=== PATIENT | female | born 1990 | race Caucasian/White ===

== ENCOUNTER 2017-05-21 06:36 | Inpatient (IN) | payer MEDICAID, OTHER ==
[~2017-05-21] VITALS: Ht 160 cm; Wt 49.2 kg
[2017-05-21 10:22] LABS: Basophils # (auto) 0 uL; Basophils % (auto) 0.3 % (0.0-2.0); Eosinophils # (auto) 0 uL; Eosinophils % (auto) 0.6 % (0.0-7.0); Hematocrit 39.9 % (36.0-46.0); Hemoglobin 13.4 g/dL (12.2-16.2); Lymphocytes # (auto) 0.9 uL; Lymphocytes % (auto) 17.9 % (10.0-50.0); Mean Corpuscular Hemoglobin 31.1 pg (28.0-32.0); Mean Corpuscular Hgb Conc. 33.5 g/dL (32.0-36.0); Mean Corpuscular Volume 92.8 fL (80.0-100.0); Monocytes # (auto) 0.5 uL; Monocytes % (auto) 9.3 % (0.0-12.0); Neutrophils # (auto) 3.7 uL; Neutrophils % (auto) 71.9 % (37.0-80.0); Nucleated Red Blood Cells % 0.1 %; Platelet Count (auto) 192 10^3/uL (140-450); Red Cell Distribution Width 13.2 % (11.8-14.3); White Blood Cell 5.1 10^3/uL (4.4-10.8)
[2017-05-21 10:33] LABS: Urine Bacteria FEW /hpf (None Seen); Urine Blood 1+ /uL (Negative); Urine Specific Gravity 1.004 (1.001-1.035); Urine WBC <1 /hpf (0 - 5)
[2017-05-21 10:33] LABS: Albumin 4.2 g/dL (3.4-5.0); BUN/Creatinine Ratio 11.9; Calcium 9.1 mg/dL (8.5-10.1); Potassium 3.6 mmol/L (3.5-5.1)
[2017-05-21 10:36] LABS: Bilirubin, Total 0.3 mg/dL (0.2-1.0); Total Protein 7.8 g/dL (6.4-8.2)
[2017-05-21] MEDS ORDERED: ONDANSETRON HCL 4 MG/2 ML VIAL IV ONE (11:30)
[2017-05-21] MEDS ORDERED: SODIUM CHLORIDE 0.9% 1,000 ML IV ONE (11:30)
[2017-05-21] MEDS ORDERED: KETOROLAC TROMETH 30 MG/ML 1ML VIAL IV ONE (11:30)
[2017-05-21] MEDS ORDERED: MORPHINE SULFATE 4 MG/ML SYR/VIAL IV ONE (11:45)
[2017-05-21] MEDS ORDERED: cefTRIAXone 1GM/10ml IVPUSH 10 ML IV ONE (13:00)
[2017-05-21] MEDS ORDERED: DOCUSATE SOD 100 MG CAP PO PRN (13:00)
[2017-05-21] MEDS ORDERED: TEMAZEPAM 15 MG CAP PO PRN (13:00)
[2017-05-21] MEDS ORDERED: ACETAMINOPHEN 325 MG TAB PO PRN (13:00)
[2017-05-21] MEDS: SODIUM CHLORIDE 0.9% 1,000 ML IV SCH ×2 (13:22→16:05)
[2017-05-21] MEDS ORDERED: MORPHINE SULFATE INJECTION 1 ML ONE (14:02)
[2017-05-21] MEDS: ONDANSETRON HCL 4 MG/2 ML VIAL IV PRN (16:01)
[2017-05-21 16:08] VITALS: BP 105/58
[2017-05-21 17:00] VITALS: BP 112/81
[2017-05-21] MEDS: HYDROcodone-ACET 5/325MG TAB PO PRN (19:47)
[2017-05-21 20:00] VITALS: BP 102/56
[2017-05-21 22:07] VITALS: BP 102/56
[2017-05-22] MEDS: HYDROcodone-ACET 5/325MG TAB PO PRN ×4 (00:47→18:31)
[2017-05-22] MEDS ORDERED: HYDROmorphone HCL 2 MG/ML VL IV ONE (01:30)
[2017-05-22 05:15] VITALS: BP 106/55
[2017-05-22 05:27] LABS: Basophils # (auto) 0 uL; Basophils % (auto) 0.3 % (0.0-2.0); Eosinophils # (auto) 0.1 uL; Eosinophils % (auto) 2.8 % (0.0-7.0); Hematocrit 33.4 % (36.0-46.0); Hemoglobin 11.2 g/dL (12.2-16.2); Lymphocytes # (auto) 1.3 uL; Lymphocytes % (auto) 26.2 % (10.0-50.0); Mean Corpuscular Hemoglobin 31.5 pg (28.0-32.0); Mean Corpuscular Hgb Conc. 33.6 g/dL (32.0-36.0); Mean Corpuscular Volume 93.7 fL (80.0-100.0); Monocytes # (auto) 0.5 uL; Monocytes % (auto) 11.2 % (0.0-12.0); Neutrophils # (auto) 2.9 uL; Neutrophils % (auto) 59.5 % (37.0-80.0); Platelet Count (auto) 154 10^3/uL (140-450); Red Blood Cells 3.57 10^6/uL (4.0-5.20); Red Cell Distribution Width 13.2 % (11.8-14.3); White Blood Cell 4.8 10^3/uL (4.4-10.8)
[2017-05-22] MEDS: SODIUM CHLORIDE 0.9% 1,000 ML IV SCH ×3 (05:39→22:30)
[2017-05-22 05:46] LABS: INR 1.01 (0.9-1.15)
[2017-05-22 05:56] LABS: Albumin 3.1 g/dL (3.4-5.0); BUN/Creatinine Ratio 8.2; Bilirubin, Total 0.5 mg/dL (0.2-1.0); Calcium 7.7 mg/dL (8.5-10.1); Potassium 4.2 mmol/L (3.5-5.1); Total Protein 6.1 g/dL (6.4-8.2)
[2017-05-22] MEDS: ONDANSETRON HCL 4 MG/2 ML VIAL IV PRN ×3 (08:16→22:30)
[2017-05-22 09:00] VITALS: BP 104/65
[2017-05-22] MEDS: cefTRIAXone 1GM/10ml IVPUSH 10 ML IV SCH (09:22)
[2017-05-22] MEDS: MULTIPLE VITAMIN TAB PO SCH (09:22)
[2017-05-22] MEDS ORDERED: MANNITOL 20 % (20GM/100ML) 62.5 ML IV ONE ×2 (09:45→15:45)
[2017-05-22] MEDS ORDERED: TAMSULOSIN HYDROCHLORIDE 0.4 MG CAP PO ONE (09:45)
[2017-05-22 13:00] VITALS: BP 125/63
[2017-05-22 16:16] VITALS: BP 98/62
[2017-05-22] MEDS ORDERED: LORazepam 0.5 MG TAB PO PRN (19:00)
[2017-05-22] MEDS ORDERED: HYDROmorphone HCL 2 MG/ML VL IV PRN (19:00)
[2017-05-22] MEDS ORDERED: ONDA4TAB5 PO (19:39)
[2017-05-22] MEDS ORDERED: TAMS0.4C36 PO (19:39)
[2017-05-22] MEDS ORDERED: HYDR-4683 GT (19:39)
[2017-05-22 23:15] VITALS: BP 115/68
[2017-05-23 05:40] VITALS: BP 102/60
[2017-05-23 05:49] LABS: Basophils # (auto) 0 uL; Basophils % (auto) 0.5 % (0.0-2.0); Eosinophils # (auto) 0.1 uL; Eosinophils % (auto) 3.2 % (0.0-7.0); Hematocrit 33.8 % (36.0-46.0); Hemoglobin 11.6 g/dL (12.2-16.2); Lymphocytes # (auto) 1.5 uL; Lymphocytes % (auto) 34.9 % (10.0-50.0); Mean Corpuscular Hemoglobin 31.5 pg (28.0-32.0); Mean Corpuscular Hgb Conc. 34.5 g/dL (32.0-36.0); Mean Corpuscular Volume 91.4 fL (80.0-100.0); Monocytes # (auto) 0.5 uL; Monocytes % (auto) 11.9 % (0.0-12.0); Neutrophils # (auto) 2.1 uL; Neutrophils % (auto) 49.5 % (37.0-80.0); Nucleated Red Blood Cells % 0.3 %; Platelet Count (auto) 163 10^3/uL (140-450); Red Blood Cells 3.69 10^6/uL (4.0-5.20); Red Cell Distribution Width 13.1 % (11.8-14.3); White Blood Cell 4.3 10^3/uL (4.4-10.8)
[2017-05-23] MEDS: SODIUM CHLORIDE 0.9% 1,000 ML IV SCH (05:51)
[2017-05-23 06:02] LABS: Albumin 3.4 g/dL (3.4-5.0); Calcium 8.2 mg/dL (8.5-10.1); Potassium 3.9 mmol/L (3.5-5.1)
[2017-05-23 06:06] LABS: BUN/Creatinine Ratio 6.3
[2017-05-23 06:14] LABS: Bilirubin, Total 0.3 mg/dL (0.2-1.0); Total Protein 6.3 g/dL (6.4-8.2)
[2017-05-23] MEDS: cefTRIAXone 1GM/10ml IVPUSH 10 ML IV SCH (08:39)
[2017-05-23] MEDS: MULTIPLE VITAMIN TAB PO SCH (08:39)
[2017-05-23] MEDS: ONDANSETRON HCL 4 MG/2 ML VIAL IV PRN (08:39)
[2017-05-23 09:00] VITALS: BP 108/75
[2017-05-23 14:48] VITALS: BP 111/68
== END 2017-05-23 15:20 | disposition home or self-care (01) | DRG 465 ==
LOC: ER 06:46 → OVERFLOW 06:47 → WEST WING 14:40
PROVIDERS: ADMIT Internal Medicine; ATTEND Internal Medicine
DX: N13.2 Hydronephrosis with renal and ureteral calculous obstruction (principal); N39.0 Urinary tract infection, site not specified; D63.8 Anemia in other chronic diseases classified elsewhere; K21.9 Gastro-esophageal reflux disease without esophagitis; Z87.442 Personal history of urinary calculi
CPT/HCPCS: 36415; 74176; 80053; 81001; 81025; 85025; 85610; 87086; 94761; 96361; 96374; 96375; J1885; J2405

== ENCOUNTER 2019-04-22 15:25 | Inpatient (IN) | payer BC, MEDICAID, OTHER ==
[~2019-04-22] VITALS: Ht 160 cm; Wt 57.0 kg
[~2019-04-22 15:25] MED LIST: HYDR-4833 GT; ONDA-144 PO; TAMS0.4C36 PO
[2019-04-22] MEDS ORDERED: SODIUM CHLORIDE 0.9% 1,000 ML IVB ONE (16:10)
[2019-04-22] MEDS ORDERED: SODIUM CHLORIDE 0.9% 1,000 ML IV ONE ×2 (16:10→16:45)
[2019-04-22] MEDS ORDERED: PROMETHAZINE HCL 25 MG/ML 1ML IV ONE (16:45)
[2019-04-22 16:56] LABS: Basophils # (auto) 0 uL; Basophils % (auto) 0.1 % (0.0-2.0); Eosinophils # (auto) 0 uL; Hemoglobin 10.7 g/dL (12.2-16.2); Mean Corpuscular Hemoglobin 30.7 pg (28.0-32.0); Mean Corpuscular Hgb Conc. 32.4 g/dL (32.0-36.0); Mean Corpuscular Volume 94.6 fL (80.0-100.0); Monocytes # (auto) 0.9 uL; Monocytes % (auto) 4.7 % (0.0-12.0); Neutrophils # (auto) 17.7 uL; Neutrophils % (auto) 90.2 % (37.0-80.0); Platelet Count (auto) 225 10^3/uL (140-450); Red Blood Cells 3.49 10^6/uL (4.0-5.20); Red Cell Distribution Width 13.3 % (11.8-14.3); White Blood Cell 19.6 10^3/uL (4.4-10.8)
[2019-04-22 17:06] LABS: Albumin 3.5 g/dL (3.4-5.0); Calcium 8.1 mg/dL (8.5-10.1)
[2019-04-22 17:09] LABS: BUN/Creatinine Ratio 16.5; Bilirubin, Total 0.3 mg/dL (0.2-1.0); Total Protein 6.3 g/dL (6.4-8.2)
[2019-04-22] MEDS ORDERED: MEPERIDINE HCL (25 MG/ML) 1ML VIAL ONE (18:16)
[2019-04-22] MEDS ORDERED: fentaNYL CITRATE 100 MCG/2 ML VL ONE (18:16)
[2019-04-22] MEDS ORDERED: SODIUM CHLORIDE LOCK 10 ML ONE (18:16)
[2019-04-22] MEDS ORDERED: ONDANSETRON HCL 4 MG/2 ML VIAL ONE (18:16)
[2019-04-22] MEDS ORDERED: MIDAZOLAM HCL 1MG/1ML-2 ML VIAL ONE (18:16)
[2019-04-22] MEDS ORDERED: ETOMIDATE (2MG/ML) 20ML VIAL IV ONE (18:16)
[2019-04-22] MEDS ORDERED: ROCURONIUM 10MG/ML 10ML VIAL IV ONE (18:16)
[2019-04-22] MEDS ORDERED: HETASTARCH 500 ML IV ONE (18:30)
[2019-04-22 18:34] LABS: INR 1.06 (0.9-1.15)
[2019-04-22] MEDS ORDERED: fentaNYL CITRATE 5 ML ONE (18:43)
[2019-04-22] MEDS ORDERED: ceFAZolin 1GM/50ML 50 ML IV ONE (18:51)
[2019-04-22] MEDS ORDERED: SODIUM CHLORIDE 0.9% 1,000 ML IV SCH (19:31)
[2019-04-22] MEDS ORDERED: NEOSTIGMINE 1 MG/ML INJ (10mg/10ML VIAL) ONE (19:35)
[2019-04-22] MEDS ORDERED: GLYCOPYRROLATE 0.2 MG/ML 1ML VIAL ONE (19:35)
[2019-04-22] MEDS ORDERED: ONDANSETRON HCL 4 MG/2 ML VIAL IV PRN (19:45)
[2019-04-22] MEDS ORDERED: RHO (D) IMMUNE GLOBULIN 300 MCG INJ IM PRN (19:45)
[2019-04-22] MEDS ORDERED: MORPHINE SULF INJ 2 MG/ML SYRINGE 1ML IV PRN ×2 (19:45→20:30)
[2019-04-22] MEDS ORDERED: METOCLOPRAMIDE HCL 5MG/ml INJ 2ml VIAL IV PRN (20:30)
[2019-04-22] MEDS ORDERED: HYDROmorphone HCL 2 MG/ML VL IV PRN (20:30)
[2019-04-22] MEDS ORDERED: fentaNYL CITRATE 100 MCG/2 ML VL IV PRN (20:30)
[2019-04-22] MEDS ORDERED: HYDROmorphone HCL 2 MG/ML VL ONE (20:49)
[2019-04-22 21:40] VITALS: BP 104/58
--- NOTE | 2019-04-22 21:40 | NUR ---
Admit to [facility] admitted to [facility] via gurney on residential monitor, and portable 02. Patient transferred to bed, connected to unit monitoring and oxygen, and weighed by bedscale. Patient oriented to Montserrat tavera RN, unit, room, bed, and unit policies regarding patient care and visiting hours. All questions and concerns addressed, patient verbalized understanding.Complete physical assessment done: see interventions. Patient updated on POC all questions and concerns addressed.
--- NOTE | 2019-04-22 22:17 | NUR ---
UPDATED OVER THE PHONE ON PATIENT STATUS NEW TELEPHONE ORDERS READ BACK AND VERIFIED FOR BREAKTHROUGH PAIN, WILL FOLLOW THROUGH
[2019-04-22 23:03] VITALS: BP 104/50
[2019-04-22 23:12] LABS: Basophils # (auto) 0 uL; Basophils % (auto) 0.1 % (0.0-2.0); Eosinophils # (auto) 0 uL; Hematocrit 27.5 % (36.0-46.0); Hemoglobin 9.3 g/dL (12.2-16.2); Lymphocytes # (auto) 0.4 uL; Lymphocytes % (auto) 4.3 % (10.0-50.0); Mean Corpuscular Hemoglobin 30.6 pg (28.0-32.0); Mean Corpuscular Hgb Conc. 33.7 g/dL (32.0-36.0); Mean Corpuscular Volume 90.7 fL (80.0-100.0); Monocytes # (auto) 0.6 uL; Neutrophils # (auto) 8.6 uL; Neutrophils % (auto) 89.6 % (37.0-80.0); Platelet Count (auto) 104 10^3/uL (140-450); Red Blood Cells 3.04 10^6/uL (4.0-5.20); Red Cell Distribution Width 14.3 % (11.8-14.3); White Blood Cell 9.6 10^3/uL (4.4-10.8)
[2019-04-23] VITALS (8 sets, daily range): BP systolic 94–111; BP diastolic 47–62
[2019-04-23] MEDS ORDERED: MORPHINE SULF INJ 2 MG/ML SYRINGE 1ML IV PRN
[2019-04-23] MEDS: ceFAZolin 1GM/50ML 50 ML IV SCH ×4 (00:17→21:35)
[2019-04-23] MEDS: SODIUM CHLORIDE 0.9% 1,000 ML IV SCH ×5 (03:45→17:25)
--- NOTE | 2019-04-23 04:30 | NUR ---
UPDATED OVER THE PHONE, INCLUDING LATEST BLOOD PRESSURE PER DR. MARR INCREASE IV FLUIDS TO 200/ML PER HOUR WILL UPDATE AT 0600
[2019-04-23] MEDS: ACETAMINOPHEN IV 1000 MG/100ML (10MG/ML) IV PRN ×2 (05:00→10:31)
[2019-04-23 06:19] LABS: Basophils # (auto) 0 uL; Basophils % (auto) 0.1 % (0.0-2.0); Eosinophils # (auto) 0 uL; Eosinophils % (auto) 0.1 % (0.0-7.0); Hemoglobin 8.2 g/dL (12.2-16.2); Monocytes # (auto) 0.6 uL
[2019-04-23 06:22] LABS: Hematocrit 23.7 % (36.0-46.0); Lymphocytes % (auto) 15.9 % (10.0-50.0); Mean Corpuscular Hemoglobin 31.1 pg (28.0-32.0); Mean Corpuscular Hgb Conc. 34.6 g/dL (32.0-36.0); Monocytes % (auto) 9.4 % (0.0-12.0); Neutrophils # (auto) 4.7 uL; Neutrophils % (auto) 74.5 % (37.0-80.0); Platelet Count (auto) 101 10^3/uL (140-450); Red Blood Cells 2.63 10^6/uL (4.0-5.20); Red Cell Distribution Width 14.1 % (11.8-14.3); White Blood Cell 6.3 10^3/uL (4.4-10.8)
[2019-04-23 06:30] LABS: INR 1.07 (0.9-1.15); Partial Thromboplastin Time 30.9 sec (23.64-32.05)
--- NOTE | 2019-04-23 07:17 | NUR ---
CARE ENDORSED TO DAY SHIFT RN TORIBIO FIBRINOGEN LAB RESULT PENDING, ENDORSED TO TORIBIO RN TO CALL WITH UPDATE AND LAB RESULTS PATIENT IS CURRENTLY RESTING WITH NO SIGNS OF DISTRESS, HR 92, POX 98%, BP 96/54 RR 20 CALL LIGHT WITHIN EASY REACH
--- NOTE | 2019-04-23 07:30 | NUR ---
AT BEDSIDE UPDATED ON MORNING LABS AND NEW VERBAL ORDER TO DECREASE NS AT 125ML/HR
--- NOTE | 2019-04-23 07:30 | NUR ---
Dr Koroma at bedside, updated on patient's status. Patient seen and examined. Received verbal order to start patient on clear liquid diet and get patient out of bed. Orders read back and verified. Will carry out.
--- NOTE | 2019-04-23 07:45 | NUR ---
Opening Shift Note Assumed care of patient, awake and alert. No S/S of distress/SOB or pain. Patient saturation 98% at room air. Patient instructed and motivated on use of incentive spirometer, patient verbalized understanding. See interventions for complete assessment. Bed locked on low position, side rails up x2, bed alarms on at all times, call villalta within reach, instructed on POC and to call for assist PRN, will continue to monitor for changes Q1hr and PRN.
--- NOTE | 2019-04-23 09:00 | NUR ---
Patient out of bed to beside chair assisted by this RN and Yandel CASE, fall precautions in placed. Patient tolerated well.
--- NOTE | 2019-04-23 09:45 | NUR ---
Patient back to bed from bedside chair with Yandel CASE, fall precautions in placed. Patient tolerated well.
--- NOTE | 2019-04-23 10:02 | NUR ---
Patient complaining of RT neck pain, will inform Dr Koroma.
--- NOTE | 2019-04-23 11:00 | NUR ---
Patient able to IS up to 100Oml
--- NOTE | 2019-04-23 11:00 | NUR ---
Spoke to Dr Krooma over the phone, updated on patient's status. Informed patient is complaining of neck pain, verbalized understanding, no new orders regarding patient's neck pain. Received telephone order to discontinue Acetaminophen IV and Morphine IV and start patient on [place], Colace, Iron, Myracon, PO and Dulcolax suppository PRN. Orders read back and verified. Will carry out. Addendum: 04/23/19 at 1112 by Bridget Bansal RN Mylicon instead of Myracon
--- NOTE | 2019-04-23 11:05 | NUR ---
Spoke to Dr Koroma over the phone, received telephone order to transfer patient to Telemetry floor. Orders read back and verified. Will carry out.
[2019-04-23] MEDS ORDERED: BISACODYL 10 MG RECT SUPP PR PRN (11:15)
[2019-04-23] MEDS: SIMETHICONE 80 MG CHEWABLE TABLET PO SCH ×3 (13:27→21:35)
[2019-04-23] MEDS: FERROUS SULFATE 325 MG TAB PO SCH ×2 (13:28→17:55)
[2019-04-23] MEDS: HYDROcodone-ACET 10/325MG TAB PO PRN ×3 (13:33→23:53)
--- NOTE | 2019-04-23 17:05 | NUR ---
Spoke to Dr Koroma over the phone, updated on patient's status. MD verbalized understanding. Received telephone order to discontinue licona catheter, decreased IV fluid to 50ml/hr, and CBC in AM. Telephone orders read back and verified. Will carry out.
--- NOTE | 2019-04-23 17:56 | NUR ---
Licona catheter dc'd Order to discontinue licona catheter. Licona dc'd with clean technique following deflation of balloon. Patient tolerated well with no complaints of pain. Continue care.
--- NOTE | 2019-04-23 20:00 | NUR ---
SHIFT OPENING NOTE RECEIVED PATIENT AWAKE, ALERT AND ORIENTED X4. NO SOB OR DISTRESS NOTED. ON ROOM AIR. LOWER AB PAIN 4/10 TOLERABLE. DRESSING TO LOWER ABDOMEN IS C/D/I. ABDOMINAL BINDER ON. NS INFUSING AT 50 ML/H. PHYSICAL ASSESSMENT COMPLETED, SEE INTERVENTIONS. INSTRUCTED ON POC AND TO CALL FOR ASSIST NEEDED. BED IS IN THE LOWEST POSITION WITH SIDE RAILS UP X2, CALL LIGHT IS WITHIN REACH.
--- NOTE | 2019-04-23 20:25 | NUR ---
REPORT GIVEN TO TONJA BROWN IN TELE ALL QUESTIONS ANSWERED.
[2019-04-23] MEDS ORDERED: MORPHINE SULFATE 4 MG/ML SYR/VIAL IV PRN (21:15)
--- NOTE | 2019-04-23 21:15 | NUR ---
INCREASING ABDOMINAL PAIN PATIENT REPORTING INCREASING ABDOMINAL PAIN WITH NAUSEA. ZOFRAN GIVEN. NORCO NOT YET DUE. CALLED DR. MARR AND UPDATED HER ON PATIENT STATUS. NEW ORDERS OBTAINED FOR MORPHINE 1MG Q4H PRN FOR BREAKTHROUGH PAIN. STILL WANTS PATIENT TRANSFERRED TO TELE.
[2019-04-23] MEDS ORDERED: MORPHINE SULF INJ 2 MG/ML SYRINGE 1ML ONE (21:18)
[2019-04-23] MEDS: DOCUSATE SOD 100 MG CAP PO SCH (21:35)
--- NOTE | 2019-04-23 23:08 | NUR ---
PATIENT MOVED TO ROOM 235 IN TELE ALL BELONGINGS TAKEN WITH PATIENT.
--- NOTE | 2019-04-23 23:10 | NUR ---
Patient arrives to [facility] Patient arrives to [facility] in room 235A. [facility] pt transferred to floor [facility] transferred to 235 via bed on threat monitoring analyst and portable 02. All personal belongings transferred with patient to receiving floor. Patient care transferred to Bridgett Grossman RN. Patient orientated to unit, floor, equipment use. All questions answered. Fall and safety precautions in place. Call light within reach. Patient instructed on plan of care and to call for help as needed. Will continue to monitor q1h and prn.
[2019-04-24] MEDS: HYDROcodone-ACET 10/325MG TAB PO PRN ×5 (04:28→23:33)
[2019-04-24] MEDS: SIMETHICONE 80 MG CHEWABLE TABLET PO SCH (05:09)
[2019-04-24] MEDS: ceFAZolin 1GM/50ML 50 ML IV SCH ×3 (05:09→21:40)
[2019-04-24 05:14] VITALS: BP 100/65
[2019-04-24 05:53] LABS: Basophils # (auto) 0 uL; Eosinophils # (auto) 0.1 uL; Neutrophils # (auto) 5.1 uL; White Blood Cell 6.7 10^3/uL (4.4-10.8)
[2019-04-24 05:56] LABS: Basophils % (auto) 0.1 % (0.0-2.0); Hematocrit 23.3 % (36.0-46.0); Hemoglobin 7.9 g/dL (12.2-16.2); Lymphocytes % (auto) 14.3 % (10.0-50.0); Mean Corpuscular Hemoglobin 30.7 pg (28.0-32.0); Mean Corpuscular Hgb Conc. 34.1 g/dL (32.0-36.0); Mean Corpuscular Volume 90.1 fL (80.0-100.0); Monocytes # (auto) 0.6 uL; Monocytes % (auto) 8.3 % (0.0-12.0); Neutrophils % (auto) 76.3 % (37.0-80.0); Nucleated Red Blood Cells % 0.1 %; Platelet Count (auto) 107 10^3/uL (140-450); Red Blood Cells 2.59 10^6/uL (4.0-5.20); Red Cell Distribution Width 14.1 % (11.8-14.3)
--- NOTE | 2019-04-24 06:00 | NUR ---
FRANCI calls Franci calls inquiring patient condition. Franci was notified that patient has just finished ambulating with assistance and tolerated well. New orders received. Will continue to monitor.
--- NOTE | 2019-04-24 08:00 | NUR ---
ASSESSMENT NOTE PT IS ALERT ORIENTED X4, RESTING IN BED COMFORTABLY, NO DISTRESS NOTED, ABLE TO SELF REPOSITION AND VERBALIS HER DEMANDS, LOWER ABDOMEN DRESSING NOTED, DRY AND INTACT, PT STATED MY NECK BEFORE EVEN HAVING THE SURGERY, CHECK PT NECK, PAIN NOTED BILATERAL ON MASTOID LIGAMENTS MUSCLES, HOT PACKS ON, ASSURE PT AND SUPPORT HER, ADVICE HER TO CONTINUE HOT PACKS, AND WE WILL LET DR MARR KNOW
[2019-04-24] MEDS: FERROUS SULFATE 325 MG TAB PO SCH ×3 (08:50→17:27)
[2019-04-24 09:00] VITALS: BP 90/55
[2019-04-24] MEDS: DOCUSATE SOD 100 MG CAP PO SCH ×2 (09:10→21:40)
--- NOTE | 2019-04-24 10:55 | NUR ---
FAMILY PATIENTS AND HER TODDLER AT BED SIDE
[2019-04-24] MEDS ORDERED: CYCLOBENZAPRINE HCL 10 MG TAB PO ONE (11:00)
[2019-04-24] MEDS ORDERED: CYCLOBENZAPRINE HCL 10 MG TAB PO PRN (11:00)
--- NOTE | 2019-04-24 11:00 | NUR ---
DR MARR CALLED BACK, MADE AWARE THAT BILATERAL MASTOID MUSCLE AREA ARE HARD, TENDER TO TOUCH, NO REDNESS NOTED, NO PALPABLE LYMPHNODES MASSES NOTED, NEW ORDERS OBTAIN TO CONTINUE HOT PACKS AND GIVE FLEXERIL 10 MG TWICE NEEDED STARTING NOW
[2019-04-24 13:00] VITALS: BP 103/64
[2019-04-24] MEDS: SODIUM CHLORIDE 0.9% 1,000 ML IV SCH (13:15)
--- NOTE | 2019-04-24 13:30 | NUR ---
NECK ACHING PAIN PT STATED MY NECK PAIN NOW FEELING MUCH BETTER > CONTINUE MONITOR PT
[2019-04-24 17:00] VITALS: BP 99/59
--- NOTE | 2019-04-24 18:39 | NUR ---
PT CONTINUE STABLE, STATED < I AM WORRIED ABOUT MY NECK> CHEK PT NECK, NO CHANGES NOTED, PT MADE AWARE IF SHE NOTICE ANY CHANGES, THAT SHE CAN HAVE HER NURSE TO TALK TO DR MARR
--- NOTE | 2019-04-24 18:43 | NUR ---
SPOKE WITH DR MARR, CONFIRM THAT THERE IS NO NEED FOR HOSPITAL LIST TO MANAGE, PATIENT UPDATE GIVEN TO HER
--- NOTE | 2019-04-24 19:30 | NUR ---
Opening Shift Note Assumed care of patient, awake and alert. No S/S of distress/SOB or pain. Instructed on POC and to call for assist PRN, will continue to monitor for changes Q1hr and PRN.
[2019-04-24 22:00] VITALS: BP 113/58
--- NOTE | 2019-04-25 04:21 | NUR ---
ADVANCED DIET PER ORDERS ADVANCE DIET TOLERATED. WILL ADVANCE TO FULL LIQUID DIET FOR BREAKFAST. PER PATIENT SHE TOLERATED HER CLEAR LIQUID DINNER WITHOUT N/V/ABD PAIN. BOWEL SOUNDS ACTIVE AT THIS TIME. LAST BM 04/22/19 PER PATIENT. PATIENT REPORTS NO FLATUS AT THIS TIME.
--- NOTE | 2019-04-25 04:23 | NUR ---
IV removal IV DC'd Right AC with clean sterile technique, catheter fully intact. Pressure dressing applied to site. Patient tolerated well. NOTE: IV site leaking
--- NOTE | 2019-04-25 04:26 | NUR ---
AMBULATION PATIENT AMBULATED TO BATHROOM WITH STANDBY ASSIST.PATIENT RETURNED TO BED WITHOUT INCIDENT.
[2019-04-25 05:00] VITALS: BP 99/52
[2019-04-25] MEDS: HYDROcodone-ACET 10/325MG TAB PO PRN (05:16)
[2019-04-25 05:18] VITALS: BP 109/60
[2019-04-25] MEDS: ceFAZolin 1GM/50ML 50 ML IV SCH (05:18)
--- NOTE | 2019-04-25 05:25 | NUR ---
POSITIVE FLATUS PATIENT REPORTS PASSING GAS THIS AM.
--- NOTE | 2019-04-25 07:00 | NUR ---
Opening Shift Note Assumed care of patient, awake and alert. No S/S of distress/SOB. Pain reported. Pain management options discussed with patient. Instructed on POC and to call for assist PRN, will continue to monitor for changes Q1hr and PRN.
[2019-04-25 08:58] VITALS: BP 106/66
[2019-04-25] MEDS: DOCUSATE SOD 100 MG CAP PO SCH (09:38)
[2019-04-25] MEDS: FERROUS SULFATE 325 MG TAB PO SCH (09:38)
[2019-04-25] MEDS: SODIUM CHLORIDE 0.9% 1,000 ML IV SCH (09:38)
--- NOTE | 2019-04-25 11:30 | NUR ---
Discharge instructions given as ordered. Encourage to follow up with PMD as instructed. All questions and concerns addressed. Patient verbalized understanding. IV removed with catheter intact, pressure dressing applied. Telemetry unit returned to ICU. Patient taken to vehicle via wheelchair with all personal belongings, accompanied by staff and family member. No distress noted at time of departure.
== END 2019-04-25 11:27 | disposition home or self-care (01) | DRG 819 ==
LOC: ER 15:25 → OR 1 18:29 → DOU IN ICU 18:30 → OR 1 18:38 → TELE-EAST 04-23 23:05
PROVIDERS: ADMIT Obstetrics & Gynecology; ATTEND Obstetrics & Gynecology
PROC: 30233N1 Transfusion of Nonautologous Red Blood Cells into Peripheral Vein, Percutaneous Approach (ICD-10-PCS; 2019-04-22)
PROC: 10T20ZZ Resection of Products of Conception, Ectopic, Open Approach (ICD-10-PCS; principal; 2019-04-23)
PROC: 30233K1 Transfusion of Nonautologous Frozen Plasma into Peripheral Vein, Percutaneous Approach (ICD-10-PCS; 2019-04-23)
DX: O00.80 Other ectopic pregnancy without intrauterine pregnancy (principal); O99.281 Endocrine, nutritional and metabolic diseases complicating pregnancy, first trimester; Z3A.01 Less than 8 weeks gestation of pregnancy; E86.0 Dehydration
CPT/HCPCS: 36415; 76801; 80053; 84702; 85025; 85384; 85610; 85730; 86850; 86900; 86901; 86920; 87081; 96361; 96365; 96375; G0378; J0131; J0690; J2250; J2405